=== PATIENT | male | born 1985 | race Caucasian/White ===

== ENCOUNTER 2023-04-22 09:37 | Emergency (ER) | payer OTHER, SELFPAY ==
[2023-04-22] VITALS (11 sets, daily range): BP systolic 138–200; BP diastolic 87–113; PULSE 69–120; RESP 9–27; TEMP 36.5; O2SAT 98–100
--- NOTE | ~2023-04-22 | CT_ITS ---
EXAMINATION: CT BRAIN W/O DATE: 04/22/2023 11:31 INDICATION: Tingling. TECHNIQUE: Computed tomography (CT) of the head was performed without intravenous contrast. The dose- length product was 605.33 mGy-cm. Automated exposure control and iterative reconstruction technique w ere employed. COMPARISON: No prior studies for comparison. FINDINGS: Normal brain parenchymal volume for age. Normal robles-white differentiation. No acute intrac ranial hemorrhage, infarction, mass or mass effect. No ventriculomegaly or midline shift. Midline sagittal images demonstrate a normal corpus callosum, c raniovertebral junction and sella turcica. Basilar cisterns are patent. Paranasal sinuses and mastoids are pneumatized. No depressed skull fractures. IMPRESSION: 1. No acute intracranial abnormality. Reviewed, dictated and finalized at location B.
--- NOTE | ~2023-04-22 | XR_ITS ---
EXAMINATION: XR chest 1V portable DATE: 04/22/2023 11:22 INDICATION: Cough. Left arm pain. TECHNIQUE: A single frontal view of the chest was obtained. COMPARISON: None. FINDINGS: There is no pneumonia, pleural effusion, or pneumothorax. The heart size is normal. IMPRESSION: 1. No acute cardiopulmonary disease. Reviewed, dictated and finalized at location E.
--- NOTE | 2023-04-22 09:47 | ECG_ITS ---
Measurements Intervals [place] Rate: 117 P: 18 UT: 169 QRS: 32 QRSD: 101 T: 26 QT: 346 QTc: 484 Interpretive Statements SINUS TACHYCARDIA MINIMAL Q WAVES- INFERIOR LEADS ABNORMAL ECG NO PREVIOUS ECG AVAILABLE FOR COMPARISON Electronically Signed On 04-22-2023 9:56:51 CDT by Chip Villanueva D.O.
[2023-04-22 10:01] LABS: Basophils Absolute Auto 0.2 K/mm3 (0.0-0.1); Basophils Percent Auto 1.4 % (0.2-1.2); Eosinophils Absolute Auto 0.1 K/mm3 (0-0.3); Eosinophils Percent Auto 1.2 % (0-4.4); Hematocrit 46.8 % (42.0-52.0); Immature Granulocyte Absolute 0.07 K/mm3 (0.00-0.031); Immature Granulocyte Percent A 0.6 % (0-0.5); Lymphocytes Absolute Auto 3.21 K/mm3 (0.9-3.2); Lymphocytes Percent Auto 29.3 % (18.3-44.2); Mean Corpuscular HGB Conc 34.2 g/dl (32-36); Mean Corpuscular Hemoglobin 30.5 pg (26-34); Mean Corpuscular Volume 89.3 fl (80-100); Mean Platelet Volume 9.2 fl (7.4-10.4); Monocytes Absolute Auto 0.7 K/mm3 (0.1-0.6); Neutrophils Absolute Auto 6.7 K/mm3 (1.3-6.7); Neutrophils Percent Auto 61.5 % (45.5-73.1); Platelet Count Result 342 k/mm3 (150-375); Red Blood Count 5.24 M/mm3 (4.6-6.20); Red Cell Distribution Width 11.9 % (11.5-14.5); White Blood Count 10.9 K/mm3 (4.5-10.0)
[2023-04-22 10:10] LABS: Alanine Aminotransferase 41 U/L (6-50); Albumin Level 4.7 g/dL (3.5-5.1); Alkaline Phosphatase 69 U/L (38-126); Anion Gap 10 mmol/L (8-16); Aspartate Amino Transferase 42 U/L (17-59); Bilirubin,Total 0.9 mg/dL (0.2-1.3); Blood Urea Nitrogen 17 mg/dL (9-20); Calcium 8.9 mg/dL (8.4-10.2); Carbon Dioxide 24 mmol/L (22-30); Chloride 99 mmol/L (98-107); Estimated CRCL calculation 110 ml/min; Estimated Glomerular Filt Rate > 60; Glucose 129 mg/dL (65-110); Lipase 130 U/L (23-300); Potassium 3.5 mmol/L (3.4-5.0); Sodium 133 mmol/L (137-145)
[2023-04-22 10:15] LABS: INR 0.9; Prothrombin Time 12.7 Seconds (11.1-14.7)
[2023-04-22 10:16] LABS: Partial Thromboplastin Time 27.9 SECONDS (22.3-36.8)
[2023-04-22 10:22] LABS: Troponin I < 0.012 ng/mL (0.000-0.034)
--- NOTE | 2023-04-22 10:58 | ED.GENADULT ---
HPI - General Adult General Chief complaint: Recheck/Abnormal Lab/Rx Stated complaint: left arm numbness Time Seen by Provider: 04/22/23 10:10 History of Present Illness HPI narrative: Jonathan Trujillo is a 38 y/o male who presents with reports of finding that his blood pressure has been running high, he was on blood pressure medication before but he quit over a year ago. He has an appointment with a new PCP this Tuesday. However, today while he was at work he said that he started to feel fidgety and felt some tingling to his left arm. He states that it made him concerned so he came to get checked out. He states that the tingling sensation comes and goes down his left arm / no numbness/ no weakness/ denies chest pain/ denies shortness of breath/ no vision changes/ no headache/ does not take any medications daily. Related Data Allergies Allergy/AdvReac Type Severity Reaction Status Date / Time No Known Allergies Allergy Verified 04/22/23 10:03 Review of Systems Review of Systems: CONSTITUTIONAL: Denies fever, chills, or sweats. EYES: Denies visual changes, redness, or discharge. ENT: Denies rhinorrhea, congestion, sore throat, or otalgia. CARDIOVASCULAR: Denies chest pain, palpitations, or edema. RESPIRATORY: Denies cough or dyspnea. GASTROINTESTINAL: Denies abdominal pain, nausea, vomiting, or diarrhea. GENITOURINARY: Denies dysuria or hematuria. SKIN: Denies rash or itching. MUSCULOSKELETAL: Denies back pain, joint pain, or myalgia. NEUROLOGIC: Denies headache, numbness, dizziness, or weakness. PSYCHIATRIC: Denies anxiety or depression. Exam Narrative: GENERAL: Well-appearing, well-nourished, and in no acute distress. HEAD: Normocephalic, atraumatic. EYES: PERRLA and EOMI. ENT: Nares clear, no rhinorrhea or epistaxis. Mucous membranes moist. Oropharynx without tonsillar hypertrophy exudate or other lesions. NECK: Supple. No adenopathy or masses. No carotid bruits or JVD CHEST: Clear to auscultation. No respiratory distress. No wheezes rales or rhonchi HEART: Regular rate and rhythm. No murmur heard. Normal peripheral pulses. ABDOMEN: Soft, nontender, nondistended, normal active bowel sounds. EXTREMITIES: Normal range of motion. No edema. SKIN: Warm, dry, no rash. NEURO: No focal deficits. Alert and oriented x3. PSYCH: Normal mood and affect. Course Vital Signs Vital signs: Vital Signs Temperature 36.5 C 04/22/23 09:45 Pulse Rate 120 H 04/22/23 09:45 Respiratory Rate 16 04/22/23 09:45 Blood Pressure 200/113 H 04/22/23 09:45 Pulse Oximetry 98 04/22/23 09:45 Oxygen Delivery Room Air 04/22/23 09:45 Temperature 36.5 C 04/22/23 09:45 Pulse Rate 78 04/22/23 14:10 Respiratory Rate 16 04/22/23 14:10 Blood Pressure 138/87 04/22/23 14:10 Pulse Oximetry 100 04/22/23 14:10 Oxygen Delivery Room Air 04/22/23 09:45 Medical Decision Making MDM Narrative Medical decision making narrative: No neuro deficit noted on exam Denies chest pain/ shortness of breath bp elevated to 160's systolic Denies headache/ vision changes NIHSS is a 0 Plan to check cardiac work up Discussed plan with pt and pt verbalizes understanding and agreement. Labs are stable Trop negative Second trop -negative EKG Sinus tach Chest x ray - negative Head CT - negative B/p improving here Heart score of a 2 Patient denies chest pain and reports he is feeling well Plan to d/c home as long as second trop is negative Patient agrees with plan and reports he has follow up with a PCP in 4 days. Patient's b/p improved on its own while here to 138/87 - pt no longer having any symptoms, encouraged pt to continue to follow up with new PCP for further B/P management. Differential Diagnosis Differential Diagnosis: Cardiac ischemia/ cardiomegaly/ TIA/ dehydration/ Medical Records Medical records reviewed: Yes I reviewed the external patient's medical records. Vital Signs Vital Signs:
[2023-04-22 13:44] LABS: Troponin I < 0.012 ng/mL (0.000-0.034)
== END 2023-04-22 14:10 | disposition home or self-care (01) ==
PROVIDERS: Emergency Medicine; Emergency Provider Nurse Practitioner Family
DX: R03.0 Elevated blood-pressure reading, without diagnosis of hypertension (principal); R00.0 Tachycardia, unspecified
CPT/HCPCS: 36415; 70450; 71045; 80053; 83690; 84484; 85025; 85610; 85730; 93005; 99284